=== PATIENT | male | born 1975 | race Caucasian/White ===

== ENCOUNTER 2017-09-25 21:30 | Emergency (ER) | payer MEDICAID ==
[2017-09-25 21:36] VITALS: BP 125/88; PULSE 88; TEMP 98.1; O2SAT 100
--- NOTE | 2017-09-25 21:52 | C.PDOC ---
History Of Present Illness 42 yo male c/o nasal congestion and body aches since yesterday. Also notes he had diarrhea yesterday which has resolved. (+) subjective fever. Pt went to pharmacy yesterday, took Zpak and nyquil. Notes he has relief for 4 hours but then the symptoms return. No medication since this morning. Denies chest pain, sob, abdominal pain, headache , or neck pain. Time Seen by Provider: 09/25/17 21:46 Chief Complaint (Nursing): Cough, Cold, Congestion History Per: Patient History/Exam Limitations: no limitations Onset/Duration Of Symptoms: Days (yesterday) Past Medical History Vital Signs: Last Vital Signs Temp 98.1 F 09/25/17 21:34 Pulse 88 09/25/17 21:34 Resp 20 09/25/17 22:00 BP 125/88 09/25/17 21:34 Pulse Ox 100 09/25/17 21:52 - [facility] Procedures CLOSURE SKIN & SUBCUTANEOUS NEC (11/03/14) Family History: States: Unknown Family Hx - Social History Hx Alcohol Use: No Hx Substance Use: No - Immunization History Hx Tetanus Toxoid Vaccination: No (unsure) Hx Influenza Vaccination: No Review Of Systems Except As Marked, All Systems Reviewed And Found Negative. Constitutional: Positive for: Fever ENT: Positive for: Nose Congestion Physical Exam - Physical Exam Appears: Well, Non-toxic, No Acute Distress Skin: Normal Color, Warm, Dry Head: Atraumatic, Normacephalic Eye(s): bilateral: Normal Inspection, EOMI Ear(s): Bilateral: Normal Nose: Normal Oral Mucosa: Moist Throat: Normal, No Erythema, No Exudate Neck: Normal, Normal ROM, Supple Chest: Symmetrical Cardiovascular: Rhythm Regular Respiratory: Normal Breath Sounds Gastrointestinal/Abdominal: Normal Exam, Soft, No Tenderness Back: Normal Inspection Extremity: Normal ROM Neurological/Psych: Oriented x3 ED Course And Treatment O2 Sat by Pulse Oximetry: 100 Progress Note: You have viral upper respiratory infection. Take Tylenol or Motrin alternating every 4-6 hours for Fever 100.4F or higher. Rest and drink plenty of fluids. May use cool mist humidifier or vaporizer in room. Try taking over the counter Decongestant or Cough medicine (Mucinex, Dayquil, Nyquil) as needed every 6-8 hours. Follow up with your primary medical doctor or clinic in 1 week for further evaluation. Disposition - Disposition Disposition: HOME/ ROUTINE Disposition Time: 21:50 Condition: STABLE Additional Instructions: Follow up with your primary medical doctor or clinic in 2-5 days for further evaluation. Take medications as prescribed. Return to the emergency department at any time if symptoms persist or worsen. Prescriptions: Ibuprofen [Motrin] 600 mg PO Q6 PRN #20 tab PRN Reason: Pain, Mild (1-3) Instructions: Upper Respiratory Infection (ED) Forms: [facility] [place] (Maltese) - Clinical Impression Clinical Impression: Upper respiratory infection, Viral disease
[2017-09-25 22:01] VITALS: RESP 20
== END 2017-09-25 22:00 | disposition home or self-care (01) ==
LOC: C.ER 21:30
DX: J06.9 Acute upper respiratory infection, unspecified (principal); B34.9 Viral infection, unspecified